=== PATIENT | male | born 1935 | race African-American/Black ===

== ENCOUNTER 2018-11-23 13:23 | Emergency (ER) | payer OTHER ==
[~2018-11-23] VITALS: Ht 180.3 cm; Wt 99.3 kg
[2018-11-23 13:44] VITALS: BP 113/65
[2018-11-23] MEDS ORDERED: KETOROLAC 30 MG/ML VIAL. ONE (14:40)
[2018-11-23] MEDS ORDERED: KETOROLAC 60 MG/2 ML VIAL. IM ONE (14:45)
[2018-11-23] MEDS ORDERED: HYDROcodone/APAP 5/325MG 1 TAB TABLET PO ONE (14:45)
--- NOTE | 2018-11-23 15:15 | PHYS DOC ---
Past Medical History Past Medical History: Anemia Past Surgical History: Appendectomy, Tonsillectomy Alcohol Use: None Drug Use: None Adult General Chief Complaint Chief Complaint: LOWER EXT PAIN HPI HPI Patient is a 83 year old male presents to the ED complaining of back pain 2 days. States it's been bothering him over the last 2 weeks. States its been worse over the last 2 days. States the pain radiates down his right leg. Describes the pain as sharp. Rates the pain as 8 out of 10. Patient able to ambulate without assistance. Denies injury, fever, bowel/bladder changes, saddle anesthesia, weakness, paresthesias, calf pain/swelling, recent travel, chest pain or shortness of breath. Review of Systems Review of Systems Constitutional: Denies fever or chills [] Eyes: Denies change in visual acuity, redness, or eye pain [] HENT: Denies nasal congestion or sore throat [] Respiratory: Denies cough or shortness of breath [] Cardiovascular: No additional information not addressed in HPI [] GI: Denies abdominal pain, nausea, vomiting, bloody stools or diarrhea [] : Denies dysuria or hematuria [] Musculoskeletal: Complains of back pain. Denies joint pain [] Integument: Denies rash or skin lesions [] Neurologic: Denies headache, focal weakness or sensory changes [] All other systems were reviewed and found to be within normal limits, except as documented in this note. Current Medications Current Medications Current Medications Medications (Trade) Dose Ordered Sig/Brittany Start Time Stop Time Status Last Admin Dose Admin Acetaminophen/ Hydrocodone Bitart (Lortab 5/325) 1 tab 1X ONCE 11/23/18 14:45 11/23/18 14:48 DC 11/23/18 14:44 1 TAB Ketorolac Tromethamine (Toradol 30mg Vial) 30 mg STK-MED ONCE 11/23/18 14:40 11/23/18 14:41 DC Ketorolac Tromethamine (Toradol Im) 30 mg 1X ONCE 11/23/18 14:45 11/23/18 14:48 DC 11/23/18 14:46 30 MG Allergies Allergies Allergies Coded Allergies Type Severity Reaction Last Updated Verified No Known Drug Allergies 11/23/18 No Physical Exam Physical Exam Constitutional: Well developed, well nourished, no acute distress, non-toxic appearance. [] HENT: Normocephalic, atraumatic Eyes: PERRLA, EOMI, conjunctiva normal, no discharge. [] Neck: Normal range of motion, no tenderness, supple, no stridor. [] Cardiovascular:Heart rate regular rhythm, no murmur [] Lungs & Thorax: Bilateral breath sounds clear to auscultation [] Abdomen: Bowel sounds normal, soft, no tenderness, no masses, no pulsatile masses. [] Skin: Warm, dry, no erythema, no rash. [] Back: mild lumbar paraspinal tenderness, FROM. NV intact. No overlying skin changes. no CVA tenderness. [] Extremities: No tenderness, no cyanosis, no clubbing, ROM intact, no edema. [] Neurologic: Alert and oriented X 3, normal motor function, normal sensory function, no focal deficits noted. [] Psychologic: Affect normal, judgement normal, mood normal. [] Current Patient Data Vital Signs Vital Signs Date Time Temp Pulse Resp B/P (MAP) Pulse Ox O2 Delivery O2 Flow Rate FiO2 11/23/18 13:44 97.7 74 18 113/65 (81) 97 Room Air 97.7 EKG EKG [] Radiology/Procedures Radiology/Procedures []PROCEDURE: LUMBAR SPINE 2-3V Lumbar spine, 3 views, 11/23/2018: HISTORY: Right leg pain The lumbar vertebral heights are well-maintained. There are moderate scattered marginal spurs. There are moderate degenerative changes involving the facet joints bilaterally in the lower lumbar spine, with a mild associated grade 1 spondylolisthesis at L4-5. No acute fracture is evident. The paraspinous soft tissues are unremarkable. IMPRESSION: 1. Moderate scattered degenerative changes with a mild associated spondylolisthesis at L4-5. 2. No acute bony abnormality is detected. Course & Med Decision Making Course & Med Decision Making Pertinent Labs and Imaging studies reviewed. (See chart for details) []Discussed imaging findings with patient. Patient's pain improved in the ED. States he is feeling much better. On reexamination, patient able to ambulate without assistance. No focal neural deficits. Discussed symptomatic treatment and follow-up with PCP outpatient. We'll treat with analgesics outpatient. Discussed reasons to return to the ED. Patient understands and agrees with plan. Marilu Disclaimer Dragon Disclaimer This electronic medical record was generated, in whole or in part, using a voice recognition dictation system. Departure Departure Impression: Primary Impression: Sciatic leg pain Disposition: 01 HOME, SELF-CARE Condition: IMPROVED Referrals: UNKNOWN PCP NAME (PCP) DAVON BURCIAGA MD Patient Instructions: Sciatica Scripts Hydrocodone/Apap 5-325 (NORCO 5-325 TABLET) 1 Each Tablet 1 TAB PO BID, #10 TAB Prov: ROSALIO VASQUES 11/23/18 ROSALIO VASQUES Nov 23, 2018 15:15
--- NOTE | 2018-11-23 15:43 | RAD ---
Lumbar spine, 3 views, 11/23/2018: HISTORY: Right leg pain The lumbar vertebral heights are well-maintained. There are moderate scattered marginal spurs. There are moderate degenerative changes involving the facet joints bilaterally in the lower lumbar spine, with a mild associated grade 1 spondylolisthesis at L4-5. No acute fracture is evident. The paraspinous soft tissues are unremarkable. IMPRESSION: 1. Moderate scattered degenerative changes with a mild associated spondylolisthesis at L4-5. 2. No acute bony abnormality is detected. Electronically signed by: Tuan Falcon MD (11/23/2018 3:40 PM) [facility]
[2018-11-23] MEDS ORDERED: HYDR-3164 PO (16:09)
== END 2018-11-23 16:14 | disposition home or self-care (01) ==
LOC: ER 13:23
DX: M54.41 Lumbago with sciatica, right side (principal); Z90.89 Acquired absence of other organs
CPT/HCPCS: 72100; 96372; 99284; J1885

== ENCOUNTER 2019-10-19 20:35 | Emergency (ER) | payer MEDICARE, OTHER ==
[~2019-10-19] VITALS: Ht 180.3 cm; Wt 100.5 kg
[~2019-10-19 20:35] MED LIST: HYDR-3164 PO
[2019-10-19 21:00] LABS: BASO % 1 % (0-3); EOS # 0.3 x10^3/uL (0.0-0.7); EOS % 5 % (0-3); HEMATOCRIT 28.4 % (39.0-53.0); HEMOGLOBIN 9.4 g/dL (13.0-17.5); LYMPH # 1.8 x10^3/uL (1.0-4.8); LYMPH % 31 % (24-48); MEAN CORPUSCULAR HEMOGLOBIN 29 pg (25-35); MEAN CORPUSCULAR HGB CONC 33 g/dL (31-37); MEAN CORPUSCULAR VOLUME 88 fL (79-100); MONO # 0.5 x10^3/uL (0.0-1.1); MONO % 8 % (0-9); NEUT # 3.2 x10^3/uL (1.8-7.7); NEUT % 55 % (31-73); PLATELET COUNT 297 x10^3/uL (140-400); RED BLOOD COUNT 3.21 x10^6/uL (4.30-5.70); RED CELL DISTRIBUTION WIDTH 16.9 % (11.5-14.5); WHITE BLOOD COUNT 5.8 x10^3/uL (4.0-11.0)
[2019-10-19] MEDS ORDERED: ASPIRIN 325 MG TABLET PO ONE (21:00)
[2019-10-19 21:08] LABS: PROTHROMBIN TIME PATIENT 12.8 SEC (11.7-14.0)
[2019-10-19 21:11] LABS: D-DIMER 0.43 ug/mlFEU (0.00-0.50)
[2019-10-19 21:13] LABS: CALCIUM 8.3 mg/dL (8.5-10.1); CREATININE 1.2 mg/dL (0.7-1.3); GFR 70.1; POTASSIUM 3.5 mmol/L (3.5-5.1)
[2019-10-19 21:21] LABS: ALBUMIN 3.2 g/dL (3.4-5.0); MAGNESIUM 1.6 mg/dL (1.8-2.4); TOTAL BILIRUBIN 0.2 mg/dL (0.2-1.0); TOTAL PROTEIN 6.3 g/dL (6.4-8.2)
--- NOTE | 2019-10-19 22:11 | RAD ---
EXAM: PA and Lateral Views of the Chest DATE: 10/19/2019 8:48 PM INDICATION: Chest pain COMPARISON: No Prior FINDINGS: The heart is not enlarged. Mild prominence of the right hilum. Calcified left hilar lymph node. Linear opacities left the right lower lobes likely scarring/atelectasis. No pleural effusion or pneumothorax. IMPRESSION: Linear opacities bilateral lung bases, left greater than right, likely scarring/atelectasis. Electronically signed by: Victor Manuel Ag MD (10/19/2019 10:09 PM) [facility]
[2019-10-19 23:19] VITALS: BP 142/75
--- NOTE | 2019-10-19 23:27 | PHYS DOC ---
Past Medical History Past Medical History: Anemia Past Surgical History: Appendectomy, Tonsillectomy Smoking Status: Former Smoker Alcohol Use: None Drug Use: None General Adult EDM: Chief Complaint: CHEST PAIN HPI: HPI: Patient is a 84 year old [f__sex] who presents with [] Review of Systems: Review of Systems: Constitutional: Denies fever or chills. [] Eyes: Denies change in visual acuity. [] HENT: Denies nasal congestion or sore throat. [] Respiratory: Denies cough or shortness of breath. [] Cardiovascular: Denies chest pain or edema. [] GI: Denies abdominal pain, nausea, vomiting, bloody stools or diarrhea. [] : Denies dysuria. [] Musculoskeletal: Denies back pain or joint pain. [] Integument: Denies rash. [] Neurologic: Denies headache, focal weakness or sensory changes. [] Endocrine: Denies polyuria or polydipsia. [] Lymphatic: Denies swollen glands. [] Psychiatric: Denies depression or anxiety. [] Heart Score: HEART Score for Chest Pain: HEART Score for Chest Pain Response (Comments) Value History Moderately Suspicious 1 ECG Normal 0 Age > 65 2 Risk Factors 1 or 2 Risk Factors 1 Troponin < Normal Limit 0 Total 4 Risk Factors: Risk Factors: DM, Current or recent (<one month) smoker, HTN, HLP, family history of CAD, obesity. Risk Scores: Score 0 - 3: 2.5% MACE over next 6 weeks - Discharge Home Score 4 - 6: 20.3% MACE over next 6 weeks - Admit for Clinical Observation Score 7 - 10: 72.7% MACE over next 6 weeks - Early Invasive Strategies Current Medications: Current Medications Medications (Trade) Dose Ordered Sig/[facility] Start Time Stop Time Status Last Admin Dose Admin Aspirin (Fabian Aspirin) 325 mg 1X ONCE 10/19/19 21:00 10/19/19 21:01 DC 10/19/19 21:00 325 MG Allergies: Allergies: Allergies Coded Allergies Type Severity Reaction Last Updated Verified No Known Drug Allergies 11/23/18 No Physical Exam: PE: Constitutional: Well developed, well nourished, no acute distress, non-toxic appearance. [] HENT: Normocephalic, atraumatic, bilateral external ears normal, oropharynx moist, no oral exudates, nose normal. [] Eyes: PERRLA, EOMI, conjunctiva normal, no discharge. [] Neck: Normal range of motion, no tenderness, supple, no stridor. [] Cardiovascular:Heart rate regular rhythm, no murmur [] Lungs & Thorax: Bilateral breath sounds clear to auscultation [] Abdomen: Bowel sounds normal, soft, no tenderness, no masses, no pulsatile masses. [] Skin: Warm, dry, no erythema, no rash. [] Back: No tenderness, no CVA tenderness. [] Extremities: No tenderness, no cyanosis, no clubbing, ROM intact, no edema. [] Neurologic: Alert and oriented X 3, normal motor function, normal sensory function, no focal deficits noted. [] Psychologic: Affect normal, judgement normal, mood normal. [] Current Patient Data: Labs: Laboratory Tests Test 10/19/19 20:50 10/19/19 22:52 White Blood Count 5.8 x10^3/uL (4.0-11.0) Red Blood Count 3.21 x10^6/uL (4.30-5.70) L Hemoglobin 9.4 g/dL (13.0-17.5) L Hematocrit 28.4 % (39.0-53.0) L Mean Corpuscular Volume 88 fL (79-100) Mean Corpuscular Hemoglobin 29 pg (25-35) Mean Corpuscular Hemoglobin Concent 33 g/dL (31-37) Red Cell Distribution Width 16.9 % (11.5-14.5) H Platelet Count 297 x10^3/uL (140-400) Neutrophils (%) (Auto) 55 % (31-73) Lymphocytes (%) (Auto) 31 % (24-48) Monocytes (%) (Auto) 8 % (0-9) Eosinophils (%) (Auto) 5 % (0-3) H Basophils (%) (Auto) 1 % (0-3) Neutrophils # (Auto) 3.2 x10^3/uL (1.8-7.7) Lymphocytes # (Auto) 1.8 x10^3/uL (1.0-4.8) Monocytes # (Auto) 0.5 x10^3/uL (0.0-1.1) Eosinophils # (Auto) 0.3 x10^3/uL (0.0-0.7) Basophils # (Auto) 0.0 x10^3/uL (0.0-0.2) Prothrombin Time 12.8 SEC (11.7-14.0) Prothrombin Time INR 1.0 (0.8-1.1) Activated Partial Thromboplast Time 24 SEC (24-38) D-Dimer (María) 0.43 ug/mlFEU (0.00-0.50) Sodium Level 141 mmol/L (136-145) Potassium Level 3.5 mmol/L (3.5-5.1) Chloride Level 106 mmol/L (98-107) Carbon Dioxide Level 25 mmol/L (21-32) Anion Gap 10 (6-14) Blood Urea Nitrogen 11 mg/dL (8-26) Creatinine 1.2 mg/dL (0.7-1.3) Estimated GFR (Cockcroft-Gault) 70.1 BUN/Creatinine Ratio 9 (6-20) Glucose Level 116 mg/dL (70-99) H Calcium Level 8.3 mg/dL (8.5-10.1) L Magnesium Level 1.6 mg/dL (1.8-2.4) L Total Bilirubin 0.2 mg/dL (0.2-1.0) Aspartate Amino Transferase (AST) 23 U/L (15-37) Alanine Aminotransferase (ALT) 25 U/L (16-63) Alkaline Phosphatase 80 U/L (46-116) Creatine Kinase 278 U/L (39-308) Creatine Kinase MB (Mass) 1.9 ng/mL (0.0-3.6) Creatine Kinase MB Relative Index 0.7 % (0-4) Troponin I Quantitative < 0.017 ng/mL (0.000-0.055) < 0.017 ng/mL (0.000-0.055) CO-Yhc-U-Type Natriuretic Peptide 95 pg/mL (0-449) Total Protein 6.3 g/dL (6.4-8.2) L Albumin 3.2 g/dL (3.4-5.0) L Albumin/Globulin Ratio 1.0 (1.0-1.7) Lipase 219 U/L (73-393) Laboratory Tests 10/19/19 20:50 Laboratory Tests 10/19/19 20:50 Vital Signs: Vital Signs Date Time Temp Pulse Resp B/P (MAP) Pulse Ox O2 Delivery O2 Flow Rate FiO2 10/19/19 20:35 98.3 88 18 129/71 (90) 98 98.3 EKG: EKG: @2043 NSR at 91bpm, NO ST elevation, QRS 82ms, QT/QTc 342/422ms Radiology/Procedures: Radiology/Procedures: PROCEDURE: CHEST PA & LATERAL EXAM: PA and Lateral Views of the Chest DATE: 10/19/2019 8:48 PM INDICATION: Chest pain COMPARISON: No Prior FINDINGS: The heart is not enlarged. Mild prominence of the right hilum. Calcified left hilar lymph node. Linear opacities left the right lower lobes likely scarring/atelectasis. No pleural effusion or pneumothorax. IMPRESSION: Linear opacities bilateral lung bases, left greater than right, likely scarring/atelectasis. Electronically signed by: Victor Manuel Ag MD (10/19/2019 10:09 PM) [facility] Course & Med Decision Making: Course & Med Decision Making Pertinent Labs and Imaging studies reviewed. (See chart for details) [] Dragon Disclaimer: Dragon Disclaimer: This electronic medical record was generated, in whole or in part, using a voice recognition dictation system. Departure Departure Impression: Primary Impression: Chest pain Qualified Codes: R07.9 - Chest pain, unspecified Disposition: 01 HOME, SELF-CARE Condition: STABLE Referrals: MAGGIE WHITAKER MD (PCP) EVELYN DAY MD Patient Instructions: Chest Pain (Nonspecific), [id number] BINTA REBOLLEDO DO October 19, 2019 23:27
--- NOTE | 2019-10-20 06:32 | EKG ---
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
== END 2019-10-19 23:30 | disposition home or self-care (01) ==
LOC: ER 20:35
DX: R07.89 Other chest pain (principal); Z90.89 Acquired absence of other organs; Z87.891 Personal history of nicotine dependence
CPT/HCPCS: 36415; 71046; 80053; 82553; 83690; 83735; 83880; 84484; 85025; 85379; 85610; 85730; 93005; 99285

== ENCOUNTER 2020-02-06 22:45 | Emergency (ER) | payer MEDICARE ==
[~2020-02-06] VITALS: Ht 180.3 cm; Wt 103.6 kg
--- NOTE | 2020-02-06 23:44 | RAD ---
Study: CR CHEST AP ONLY Indication: Cough. Comparison: 10/19/2019 Findings: Unchanged cardiomediastinal silhouette and everardo. Left hilar granuloma again noted. Atherosclerotic calcifications at the arch. No pneumothorax or layering effusion. More conspicuous hazy attenuation at the medial right lung base approaching the costovertebral margin. This does not silhouette the right heart border and is favored within the right lower lobe. The aeration pattern of both lungs elsewhere are essentially unchanged. Impression: More conspicuous hazy attenuation at the medial aspect of the right lower lung since the 10/19/2019 comparison. Various causes could account for this finding but an infectious etiology is a consideration in the appropriate clinical setting. Electronically signed by: DARIEL GERMAN MD (02/06/2020 11:41 PM) [id number]
[2020-02-06 23:56] LABS: BASO % 1 % (0-3); EOS # 0.2 x10^3/uL (0.0-0.7); EOS % 4 % (0-3); HEMATOCRIT 40.5 % (39.0-53.0); HEMOGLOBIN 13.6 g/dL (13.0-17.5); LYMPH % 19 % (24-48); MEAN CORPUSCULAR HEMOGLOBIN 28 pg (25-35); MEAN CORPUSCULAR HGB CONC 34 g/dL (31-37); MEAN CORPUSCULAR VOLUME 84 fL (79-100); MONO # 0.5 x10^3/uL (0.0-1.1); MONO % 9 % (0-9); NEUT # 3.4 x10^3/uL (1.8-7.7); NEUT % 68 % (31-73); PLATELET COUNT 282 x10^3/uL (140-400); RED CELL DISTRIBUTION WIDTH 16.3 % (11.5-14.5)
[2020-02-07 00:07] LABS: CALCIUM 8.4 mg/dL (8.5-10.1); CREATININE 1.1 mg/dL (0.7-1.3); GFR 77.5; POTASSIUM 4.1 mmol/L (3.5-5.1)
[2020-02-07 00:13] LABS: ALBUMIN 3.2 g/dL (3.4-5.0); ALBUMIN/GLOBULIN RATIO 0.9 (1.0-1.7); C-REACTIVE PROTEIN 1.7 mg/L (0-3.3); TOTAL BILIRUBIN 0.2 mg/dL (0.2-1.0); TOTAL PROTEIN 6.8 g/dL (6.4-8.2)
--- NOTE | 2020-02-07 01:15 | PHYS DOC ---
Past Medical History Past Medical History: Anemia Past Surgical History: Appendectomy, Tonsillectomy Smoking Status: Former Smoker Alcohol Use: None Drug Use: None General Adult EDM: Chief Complaint: MULTIPLE COMPLAINTS HPI: HPI: Patient is a 84-year-old male who presents to the emergency room complaining of leg paresthesias and dizziness. Patient states that he has been intermittently getting this for the last 6 weeks. He states that tonight's episode was the worst. He states that initially he gets paresthesias of his legs and then develops this dizziness feeling. He states that tonight's dizziness made him almost fall. He is concerned that this may be due to taking vitamin B12. He s tates that he started at about 6 weeks ago and that the symptoms often happen an hour or 2 after he takes the medication. He states that yesterday he did not take it and he did not have any symptoms. He denies any chest pain or shortness of breath. Review of Systems: Review of Systems: General: Denies fever, chills, sweats, fatigue Eyes: Denies drainage, blurred vision, eye redness HENT: Denies rhinorrhea, sore throat, earache Respiratory: Denies cough, shortness of breath, wheezing Cardiac: Denies edema, palpitations, chest pain GI: Denies abdominal pain, Nausea, vomiting MSK: Denies back pain, neck pain Skin: Denies rash, jaundice Neuro: Denies headache.reports paresthesias, dizziness Psychiatric: Denies SI/HI Heart Score: Risk Factors: Risk Factors: DM, Current or recent (<one month) smoker, HTN, HLP, family history of CAD, obesity. Risk Scores: Score 0 - 3: 2.5% MACE over next 6 weeks - Discharge Home Score 4 - 6: 20.3% MACE over next 6 weeks - Admit for Clinical Observation Score 7 - 10: 72.7% MACE over next 6 weeks - Early Invasive Strategies Allergies: Allergies: Allergies Coded Allergies Type Severity Reaction Last Updated Verified No Known Drug Allergies 11/23/18 No Physical Exam: PE: General: Awake, alert, NAD. Well Nourished, well hydrated. Cooperative HEENT: Atraumatic, EOMI, PERRL, airway patent, moist oral mucosa Neck: Supple, trachea midline Respiratory: CTA bilaterally, normal effort, no wheezing/crackles CV: RRR, no murmur, cap refill <2 GI: Soft, nondistended, nontender, no masses MSK: No obvious deformities Skin: Warm, dry, intact Neuro: A&O x3, speech NL, 5/5 strength in BUE/BLE distally and proximally, CN 2- 12 intact, cerebellar testing normal Psych: Normal affect, normal mood, not suicidal or homicidal Current Patient Data: Labs: Laboratory Tests Test 02/06/20 23:45 White Blood Count 5.0 x10^3/uL (4.0-11.0) Red Blood Count 4.80 x10^6/uL (4.30-5.70) Hemoglobin 13.6 g/dL (13.0-17.5) Hematocrit 40.5 % (39.0-53.0) Mean Corpuscular Volume 84 fL (79-100) Mean Corpuscular Hemoglobin 28 pg (25-35) Mean Corpuscular Hemoglobin Concent 34 g/dL (31-37) Red Cell Distribution Width 16.3 % (11.5-14.5) H Platelet Count 282 x10^3/uL (140-400) Neutrophils (%) (Auto) 68 % (31-73) Lymphocytes (%) (Auto) 19 % (24-48) L Monocytes (%) (Auto) 9 % (0-9) Eosinophils (%) (Auto) 4 % (0-3) H Basophils (%) (Auto) 1 % (0-3) Neutrophils # (Auto) 3.4 x10^3/uL (1.8-7.7) Lymphocytes # (Auto) 1.0 x10^3/uL (1.0-4.8) Monocytes # (Auto) 0.5 x10^3/uL (0.0-1.1) Eosinophils # (Auto) 0.2 x10^3/uL (0.0-0.7) Basophils # (Auto) 0.0 x10^3/uL (0.0-0.2) D-Dimer (María) 0.56 ug/mlFEU (0.00-0.50) H Sodium Level 141 mmol/L (136-145) Potassium Level 4.1 mmol/L (3.5-5.1) Chloride Level 104 mmol/L (98-107) Carbon Dioxide Level 31 mmol/L (21-32) Anion Gap 6 (6-14) Blood Urea Nitrogen 10 mg/dL (8-26) Creatinine 1.1 mg/dL (0.7-1.3) Estimated GFR (Cockcroft-Gault) 77.5 BUN/Creatinine Ratio 9 (6-20) Glucose Level 100 mg/dL (70-99) H Calcium Level 8.4 mg/dL (8.5-10.1) L Magnesium Level 1.7 mg/dL (1.8-2.4) L Total Bilirubin 0.2 mg/dL (0.2-1.0) Aspartate Amino Transferase (AST) 18 U/L (15-37) Alanine Aminotransferase (ALT) 16 U/L (16-63) Alkaline Phosphatase 74 U/L (46-116) Lactate Dehydrogenase 186 U/L (85-227) Creatine Kinase 162 U/L (39-308) Troponin I Quantitative < 0.017 ng/mL (0.000-0.055) C-Reactive Protein, Quantitative 1.7 mg/L (0-3.3) BW-Dew-D-Type Natriuretic Peptide 113 pg/mL (0-449) Total Protein 6.8 g/dL (6.4-8.2) Albumin 3.2 g/dL (3.4-5.0) L Albumin/Globulin Ratio 0.9 (1.0-1.7) L Laboratory Tests 02/06/20 23:45 Laboratory Tests 02/06/20 23:45 Vital Signs: Vital Signs Date Time Temp Pulse Resp B/P (MAP) Pulse Ox O2 Delivery O2 Flow Rate FiO2 02/07/20 00:30 72 18 154/86 (108) 98 Room Air 02/06/20 23:03 98.2 98.2 EKG: EKG: [] Radiology/Procedures: Radiology/Procedures: [] Course & Med Decision Making: Course & Med Decision Making Pertinent Labs and Imaging studies reviewed. (See chart for details) Patient is an 84-year-old male who presents to the emergency room complaining of paresthesias and dizziness. Patient symptoms do not exactly fit together. Paresthesias are short-lived. He has normal pulses and bilateral feet and femorals. He does not have a history of diabetes. His not have a history of neuropathy. The fact the patient's symptoms are intermittent makes neuropathy unlikely. Patient's dizziness has resolved. He denies any chest pain or shortness of breath with this. Dizziness work-up was ordered including CBC, BMP, EKG, troponin, UA. Work-up was unremarkable. I did discuss the patient's B12 with the pharmacist. Pharmacist does state that it is possible to have these kind of side effects with B12 and high doses. She states dizziness is a well-known side effect of high-dose B12. It is likely that the patient symptoms are due to B12. While in the emergency room his symptoms completely resolved. He was able to walk around without any difficulty. I have recommended that he stop his B12 until his repeat B12 level comes back. I have discussed with him that if his symptoms return despite not being on B12 he should return to the emergency room for admission and further evaluation. Patient's test results and vitals while in the ED were fully reviewed and discussed with the patient. Patient is stable and at this time does not need admission to the hospital. We have discussed strict return precautions and the importance of following up with their Primary Care Physician. Patient stated understanding and was given an opportunity to ask any questions. Patient is in agreement with plan. Marilu Disclaimer: Marilu Disclaimer: This electronic medical record was generated, in whole or in part, using a voice recognition dictation system. Departure Departure Impression: Primary Impression: Dizziness Additional Impression: Medication side effect Disposition: 01 HOME, SELF-CARE Condition: STABLE Referrals: MAGGIE WHITAKER MD (PCP) Patient Instructions: Dizziness, Vitamin B12 oral Justicifation of Admission Dx: Justifications for Admission: Justification of Admission Dx: N/A RAJI VERMA MD Feb 07, 2020 01:15
[2020-02-07 01:57] VITALS: BP 168/86
--- NOTE | 2020-02-07 07:52 | EKG ---
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
== END 2020-02-07 01:57 | disposition home or self-care (01) ==
LOC: ER 22:45
DX: R42 Dizziness and giddiness (principal); R20.2 Paresthesia of skin; D64.9 Anemia, unspecified; Z90.89 Acquired absence of other organs; Z87.891 Personal history of nicotine dependence
CPT/HCPCS: 36415; 71045; 80053; 82550; 82607; 83615; 83735; 83880; 84484; 85025; 85379; 86140; 93005; 99285